=== PATIENT | female | born 1965 | race Two or more races ===

== ENCOUNTER 2022-04-21 08:14 | Emergency (ER) | payer OTHER ==
[~2022-04-21] VITALS: Ht 160 cm; Wt 63.5 kg
== END 2022-04-21 17:38 | disposition home or self-care (01) ==
LOC: ER 08:14
DX: R10.9 Unspecified abdominal pain (principal); R10.2 Pelvic and perineal pain; Z20.822 Contact with and (suspected) exposure to COVID-19
CPT/HCPCS: 36415; 74177; Q9965

== ENCOUNTER 2024-05-20 14:26 | Emergency (ER) | payer OTHER ==
[~2024-05-20] VITALS: Ht 160 cm; Wt 70.8 kg
[2024-05-20] MEDS ORDERED: DEXAMETHASONE SODIUM PHOSPHATE 4 MG/ML VIAL IM STA (17:58)
[2024-05-20] MEDS ORDERED: ORPHENADRINE CITRATE 30 MG/ML AMPUL IM STA (17:58)
[2024-05-20] MEDS ORDERED: KETOROLAC TROMETHAMINE 30 MG VIAL IM STA (17:59)
[2024-05-20 18:30] LABS: HEMATOCRIT 39.8 % (36.0-45.00); HEMOGLOBIN 13.3 g/dL (12.0-15.00); MEAN CELL VOLUME 85.9 fL (80.00-100.00); MEAN CORPUSCULAR HEMOGLOBIN 28.8 pg (27.00-32.0); MEAN CORPUSCULAR HGB CONC 33.5 g/dl (32.0-36.0); PLATELET COUNT 269 K/uL (150-450); RED BLOOD COUNT 4.63 M/uL (4.00-6.00); RED CELL DISTRIBUTION WIDTH 14.7 % (11.5-14.5)
[2024-05-20] MEDS ORDERED: NORFLEX100MG PO (21:29)
== END 2024-05-20 21:59 | disposition home or self-care (01) ==
LOC: ER 14:28
DX: M62.838 Other muscle spasm (principal); Z20.822 Contact with and (suspected) exposure to COVID-19
CPT/HCPCS: 36415; 96372; 99282; J1100; J1885; J2360